=== PATIENT | female | born 1955 | race Caucasian/White ===

== ENCOUNTER → 2017-01-20 | Day surgery (SDC) | payer OTHER ==
[~2017-01-20] MED LIST: ADDERALL PO; CALCIUM 500 +1 EAC2 PO; FLEXERIL10 MG PO; FLUOXETINE HCL40 M1 PO; HYDROCHLOROTH12.5 M1 PO; LIPITOR40 MG PO; LORTAB 5/500 TA1 TA1 PO; PROPRANOLOL HCL20 MG PO; QUETIAPINE FUM100 MG PO; VOLTAREN75 MG PO; ZESTRIL2.5 M1 PO
--- NOTE | ~2017-01-20 | OR ---
Unit #: [id number] #: [id number] Patient: ADAM KRAMER [id number] [address] [place], [place] [address] [id number] O MR#: [id number] NAME: ADAM KRAMER ROOM: Date of Procedure: 01/20/2017 Admission Date: 01/20/2017 Surgeon: Sukhi Al Jr., M.D. : 1955 Attending Physician: Sukhi Al Jr., M.D. Primary Care Physician: Anya Jorgensen M.D. OPERATIVE REPORT INDICATIONS FOR PROCEDURE The patient is a 61-year-old white female, who presents desiring screening colonoscopy. She has had no previous scope. She has had no rectal bleeding or change in bowel habits. PREOPERATIVE DIAGNOSIS Desired screening colonoscopy, rule out pathology. POSTOPERATIVE DIAGNOSIS Normal colonoscopy to the distal ileum. ANESTHESIA MAC anesthesia. PROCEDURE PERFORMED Flexible colonoscopy to the distal ileum. DESCRIPTION OF PROCEDURE The patient was positioned in [place]anc[place] position with left side down. After being given MAC anesthesia, digital rectal examination was performed which revealed no palpable mass or tenderness. No blood or stool in the rectal ampulla. The Olympus colonoscope was advanced into the anal canal up the rectum and retroflexed down to the area of the anorectal region. There was no evidence of any fissures. No significant internal hemorrhoids. The scope was then straightened and advanced up in the rectosigmoid, in the sigmoid and descending colon areas, around the splenic flexure and the transverse colon, around hepatic flexure and ascending colon, down in the area of the cecum. The light from the tip of the scope could be seen transilluminating through the right lower quadrant abdominal wall area. The scope was advanced up the distal ileum approximately 10 to 12 inches. There was no evidence of any ileitis or inflammatory bowel disease. The scope was slowly removed. There were no tumors, no polyps, cancer, or AVMs. No evidence of any colitis, diverticulosis, or diverticulitis. The caliber of the colon appeared normal throughout. The scope was removed. The patient tolerated the procedure well and discharged in satisfactory condition. Dictated by... Sukhi Al Jr., M.D. Unit #: [id number] #: [id number] Patient: ADAM KRAMER [place] PUENTE/nic TD: 01/20/2017 11:51 JOB #: [id number] OPERATIVE REPORT Page 1 of 1 X Sukhi Al MD PROCEDURE OPERATIVE NOTE
== END | disposition home or self-care (01) ==
LOC: COPS 05:31
DX: Z12.11 Encounter for screening for malignant neoplasm of colon (principal); I10 Essential (primary) hypertension; E78.5 Hyperlipidemia, unspecified; M19.90 Unspecified osteoarthritis, unspecified site; F32.9 Major depressive disorder, single episode, unspecified; F41.9 Anxiety disorder, unspecified; Z79.899 Other long term (current) drug therapy; Z85.820 Personal history of malignant melanoma of skin; Z82.49 Family history of ischemic heart disease and other diseases of the circulatory system; Z84.89 Family history of other specified conditions; Z98.51 Tubal ligation status
CPT/HCPCS: J2250